=== PATIENT | male | born 1945 | race Caucasian/White ===

== ENCOUNTER → 2019-04-06 | Outpatient (CLI) | payer BC, MEDICARE ==
[~2019-04-06] VITALS: Ht 162.6 cm; Wt 68.0 kg
[~2019-04-06] MED LIST: AMLO5TAB15 PO; ASPI-404 PO; BUPIVACAINE W/ EPINEPH 0.25% INJ 50ML MDV ONE; SIMV10TA84 PO; TRANEXAMIC ACID 0 ML ONE
== END | disposition home or self-care (01) ==
LOC: SUR 05:44 → EDSTATUS 06:45
PROVIDERS: ATTEND Orthopaedic Surgery Adult Reconstructive Orthopaedic Surgery
DX: M16.11 Unilateral primary osteoarthritis, right hip (principal); Z53.8 Procedure and treatment not carried out for other reasons

== ENCOUNTER 2020-09-20 19:50 | Inpatient (IN) | payer MEDICARE, BC ==
[~2020-09-20] VITALS: Ht 172.7 cm; Wt 71.6 kg
[~2020-09-20 19:50] MED LIST changes: +AMLO-489 PO; -AMLO5TAB15 PO; -ASPI-404 PO; +ASPI-543 PO; -BUPIVACAINE W/ EPINEPH 0.25% INJ 50ML MDV ONE; -TRANEXAMIC ACID 0 ML ONE
[2020-09-20 22:00] VITALS: BP 133/89
[2020-09-20 22:22] VITALS: BP 133/89
[2020-09-21] MEDS ORDERED: MORPHINE SULF INJ 2 MG/ML SYRINGE 1ML IV PRN (01:45)
[2020-09-21] MEDS ORDERED: NITROGLYCERIN 0.4 MG SL TAB SL PRN (01:45)
[2020-09-21] MEDS ORDERED: ZOLPIDEM TARTRATE 5 MG TAB PO PRN (04:45)
[2020-09-21] MEDS: SODIUM CHLORIDE 0.9% 1,000 ML IV SCH ×3 (05:08→18:05)
[2020-09-21 05:22] VITALS: BP 119/78
[2020-09-21 07:06] LABS: Basophils # (auto) 0 10 ^3/uL (0-0.2); Basophils % (auto) 0.5 % (0.0-2.0); Eosinophils # (auto) 0.2 10 ^3/uL (0-0.8); Eosinophils % (auto) 2.4 % (0.0-7.0); Hemoglobin 13.5 g/dL (13.5-17.5); Lymphocytes # (auto) 1.6 10 ^3/uL (0.4-5.4); Lymphocytes % (auto) 20.8 % (10.0-50.0); Mean Corpuscular Hemoglobin 31.9 pg (28.0-32.0); Mean Corpuscular Hgb Conc. 33.8 g/dL (32.0-36.0); Mean Corpuscular Volume 94.2 fL (80.0-100.0); Monocytes # (auto) 1.1 10 ^3/uL (0-1.3); Monocytes % (auto) 14.7 % (0.0-12.0); Neutrophils # (auto) 4.7 10 ^3/uL (1.6-8.6); Neutrophils % (auto) 61.6 % (37.0-80.0); Nucleated Red Blood Cells % 0.2 %; Platelet Count (auto) 143 10^3/uL (140-450); Red Blood Cells 4.24 10^6/uL (4.5-5.90); Red Cell Distribution Width 16.3 % (11.8-14.3); White Blood Cell 7.7 10^3/uL (4.4-10.8)
[2020-09-21 07:11] LABS: Albumin 2.6 g/dL (3.4-5.0); BUN/Creatinine Ratio 27.2; Calcium 8.1 mg/dL (8.5-10.1); Potassium 4.3 mmol/L (3.5-5.1)
[2020-09-21 07:14] LABS: Bilirubin, Total 1.1 mg/dL (0.2-1.0)
[2020-09-21] MEDS ORDERED: LIDOCAINE 2%HCL (LOCAL ANESTH.) INJ 20ML MDV ONE (07:14)
[2020-09-21] MEDS ORDERED: IODIXANOL 320MG/ML 100ML BTL IV ONE (07:14)
[2020-09-21 07:19] LABS: INR 1.23 (0.9-1.15)
[2020-09-21] MEDS ORDERED: VERAPAMIL 2.5MG/ML INJ 2ML VIAL IV ONE (08:26)
[2020-09-21] MEDS ORDERED: fentaNYL CITRATE 100 MCG/2 ML VL ONE (08:26)
[2020-09-21] MEDS ORDERED: HEPARIN SODIUM (PORCINE) 5000 UNITS/ML 1ML VIAL ONE (08:26)
[2020-09-21] MEDS ORDERED: MIDAZOLAM HCL 1MG/1ML-2 ML VIAL ONE (08:27)
[2020-09-21] MEDS ORDERED: ONDANSETRON HCL 4 MG/2 ML VIAL IV PRN (09:45)
[2020-09-21] MEDS ORDERED: ACETAMINOPHEN 500 MG TAB PO PRN (09:45)
[2020-09-21] MEDS ORDERED: ENAL2.5T7 PO (10:21)
[2020-09-21] MEDS ORDERED: CAR3125T PO (10:21)
[2020-09-21] MEDS ORDERED: POTA10TA51 PO (10:21)
[2020-09-21] MEDS ORDERED: FURO40TA4 PO (10:21)
[2020-09-21 12:30] VITALS: BP 128/79
[2020-09-21 12:39] LABS: Alcohol, Urine < 3.0 mg/dL (0-10); Amphetamine Screen, Urine NEGATIVE (NEGATIVE); Barbiturate Scree,Urine NEGATIVE (NEGATIVE); Benzodiazephine Screen, Urine POSITIVE (NEGATIVE); Cannabinoid Screen, Urine NEGATIVE (NEGATIVE); Cocaine Screen, Urine NEGATIVE (NEGATIVE); Opiate Scree,Urine NEGATIVE (NEGATIVE); Phencyclidine Screen, Urine NEGATIVE (NEGATIVE)
[2020-09-21] MEDS: CARVEDILOL 3.125 MG TAB PO SCH ×2 (13:02→21:47)
[2020-09-21] MEDS: FUROSEMIDE 40 MG TAB PO SCH (13:03)
[2020-09-21] MEDS: ENALAPRIL MALEATE 2.5 MG TAB PO SCH (13:03)
[2020-09-21 16:30] VITALS: BP 123/76
[2020-09-21] MEDS: SODIUM CHLOR 0.9% PF (SALINE LOCK) 10ML VIAL/SYR IV SCH ×2 (17:17→21:47)
[2020-09-21 21:47] VITALS: BP 107/75
[2020-09-21] MEDS ORDERED: ATORVASTATIN 20 MG TAB PO SCH (22:00)
[2020-09-22] MEDS: SODIUM CHLORIDE 0.9% 1,000 ML IV SCH ×3 (00:45→14:05)
[2020-09-22 04:30] VITALS: BP 101/52
[2020-09-22] MEDS: SODIUM CHLOR 0.9% PF (SALINE LOCK) 10ML VIAL/SYR IV SCH ×2 (05:52→14:00)
[2020-09-22 08:00] VITALS: BP 118/72
[2020-09-22] MEDS: FUROSEMIDE 40 MG TAB PO SCH (12:56)
[2020-09-22] MEDS: CARVEDILOL 3.125 MG TAB PO SCH (12:56)
[2020-09-22] MEDS: ENALAPRIL MALEATE 2.5 MG TAB PO SCH (12:57)
[2020-09-22 13:08] VITALS: BP 116/69
[2020-09-22] MEDS ORDERED: guaiFENesin-DM 100/10mg/5ml SYR PO PRN (15:45)
[2020-09-22 17:02] VITALS: BP 129/82
[2020-09-22 21:20] VITALS: BP 125/78
== END 2020-09-22 21:26 | disposition home or self-care (01) | DRG 286 ==
LOC: TELE-CENTR 21:53
PROVIDERS: ADMIT Hospitalist; ATTEND Hospitalist
PROC: 4A023N7 Measurement of Cardiac Sampling and Pressure, Left Heart, Percutaneous Approach (ICD-10-PCS; principal; 2020-09-21)
PROC: B215YZZ Fluoroscopy of Left Heart using Other Contrast (ICD-10-PCS; 2020-09-21)
PROC: B211YZZ Fluoroscopy of Multiple Coronary Arteries using Other Contrast (ICD-10-PCS; 2020-09-21)
DX: I13.0 Hypertensive heart and chronic kidney disease with heart failure and stage 1 through stage 4 chronic kidney disease, or unspecified chronic kidney disease (principal); I50.21 Acute systolic (congestive) heart failure; Z20.822 Contact with and (suspected) exposure to COVID-19; I25.10 Atherosclerotic heart disease of native coronary artery without angina pectoris; I42.8 Other cardiomyopathies; N18.9 Chronic kidney disease, unspecified; J44.9 Chronic obstructive pulmonary disease, unspecified; E78.5 Hyperlipidemia, unspecified; Z82.49 Family history of ischemic heart disease and other diseases of the circulatory system; Z83.3 Family history of diabetes mellitus; Z90.49 Acquired absence of other specified parts of digestive tract; Z96.641 Presence of right artificial hip joint; Z79.899 Other long term (current) drug therapy
CPT/HCPCS: 36415; 80053; 80307; 85025; 85610; 87426; 93458; 99152; 99153; G0378; J2250; Q9967